=== PATIENT | male | born 1965 | race Caucasian/White ===

== ENCOUNTER → 2024-02-08 | Outpatient (CLI) | payer MEDICAID ==
[~2024-02-08] MED LIST: ALBU18HF2 INH; BUDE10.2 INH; GABA600T13 PO; TIOT4MIS2 INH
== END | disposition home or self-care (01) ==
LOC: MRI 11:08
PROVIDERS: ATTEND Student in an Organized Health Care Education/Training Program
DX: M47.817 Spondylosis without myelopathy or radiculopathy, lumbosacral region (principal); M48.07 Spinal stenosis, lumbosacral region; M51.27 Other intervertebral disc displacement, lumbosacral region; G62.9 Polyneuropathy, unspecified; M25.511 Pain in right shoulder; M25.512 Pain in left shoulder; G89.29 Other chronic pain
CPT/HCPCS: 72148; 73030